=== PATIENT | male | born 1995 | race Caucasian/White ===

== ENCOUNTER 2017-12-08 19:14 | Emergency (ER) | payer SELFPAY ==
[~2017-12-08] VITALS: Ht 182.9 cm; Wt 55.7 kg
[2017-12-08 19:30] VITALS: BP 121/81; PULSE 104; RESP 18; TEMP 98.3; O2SAT 98
[2017-12-08] MEDS ORDERED: SODIUM CHLOR 0.9% 1000 ML INJ 1,000 ML IV SCH (19:56)
[2017-12-08] MEDS ORDERED: ONDANSETRON HCL 4 MG/2 ML VIAL IVP ONE (20:00)
[2017-12-08] MEDS ORDERED: SODIUM CHLORIDE 0.9% FLUSH 10 ML FLUSH IV FLUSH PRN (20:00)
[2017-12-08] MEDS ORDERED: SODIUM CHLOR 0.9% 1000 ML INJ 1,000 ML IV ONE ×3 (20:00→21:00)
[2017-12-08 20:12] VITALS: BP 120/79; PULSE 87; RESP 18; O2SAT 100
[2017-12-08 20:16] LABS: HEMOGLOBIN 17.5 GM/DL (13.0-17.0); MEAN CELL VOLUME 81.6 FL (80.0-100.0); MEAN CORPUSCULAR HEMOGLOBIN 26.9 PG (27.0-34.0); MEAN PLATELET VOLUME 8.5 FL (7.0-11.0); PLATELET COUNT 280 TH/MM3 (150-450); RED CELL DISTRIBUTION WIDTH 12.4 % (11.6-17.2); WHITE BLOOD COUNT 21.1 TH/MM3 (4.0-11.0)
[2017-12-08 20:28] LABS: CALCIUM 10.5 MG/DL (8.5-10.1)
[2017-12-08 20:29] LABS: BICARBONATE 23.6 MEQ/L (21.0-32.0)
[2017-12-08 20:32] LABS: CREATININE 1.7 MG/DL (0.60-1.30)
[2017-12-08 20:33] LABS: BANDS 30 % (0-6); LYMPHOCYTES 3 % (9-44); MONOCYTES 3 % (0-8); NEUTROPHIL # MANUAL DIFF 19.8 TH/MM3 (1.8-7.7); POLYS (SEG NEUTROPHILS) 64 % (16-70)
[2017-12-08 21:14] VITALS: BP 116/68; PULSE 84; RESP 18; O2SAT 100
--- NOTE | 2017-12-08 21:25 | PD ---
HPI Chief Complaint: GI Complaint Time Seen by Provider: 19:49 Travel History International Travel<30 days: No Contact w/Intl Traveler<30days: No Traveled to known affect area: No History of Present Illness HPI The patient is 22 years old. He reports nausea and vomiting and diarrhea throughout the course of the day. He woke up with diarrhea and vomiting started several hours later. He has had no fever. He denies blood in the stool or emesis. He denies abdominal pain. He reports vomiting at least once an hour. Any episode of vomiting is accompanied by diarrhea. There is no incontinence. The patient ate chicken yesterday was left over. He reports eating at a barbecue 2 days prior and multiple people have since developed GI illness. No similar prior events. Patient denies drugs and alcohol. PFSH Past Medical History Medical History: Denies Significant Hx Diminished Hearing: No Immunizations Current: Yes Influenza Vaccination: No ?: Not Past Surgical History Surgical History: No Previous Surgery Social History Alcohol Use: Yes (OCC) Tobacco Use: No (Vape) Substance Use: Yes (MARIJUANA) Allergies-Medications (Allergen,Severity, Reaction): Coded Allergies: No Known Allergies (Verified Adverse Reaction, Unknown, 12/08/17) Reported Meds & Prescriptions Reported Meds & Active Scripts Active No Active Prescriptions or Reported Medications Review of Systems Except as stated in HPI: all other systems reviewed are Neg General / Constitutional: No: Fever Physical Exam Narrative GENERAL: 22-year-old male well-nourished well-developed no acute distress Vital Signs Date Time Temp Pulse Resp B/P (MAP) Pulse Ox O2 Delivery O2 Flow Rate FiO2 12/08/17 21:14 84 18 116/68 (84) 100 Room Air 12/08/17 20:12 100 Room Air 12/08/17 20:12 87 18 120/79 (93) 100 Room Air 12/08/17 19:42 18 12/08/17 19:30 98.3 104 18 121/81 (94) 98 SKIN: Warm and dry. HEAD: Atraumatic. Normocephalic. EYES: Pupils equal and round. No scleral icterus. No injection or drainage. ENT: No nasal bleeding or discharge. Mucous membranes pink and moist. NECK: Trachea midline. No JVD. CARDIOVASCULAR: Regular rhythm. The heart rate about 100. RESPIRATORY: No accessory muscle use. Clear to auscultation. Breath sounds equal bilaterally. GASTROINTESTINAL: A abdomen is soft. There is no focus of tenderness. MUSCULOSKELETAL: Extremities without clubbing, cyanosis, or edema. No obvious deformities. NEUROLOGICAL: Awake and alert. No obvious cranial nerve deficits. Motor grossly within normal limits. Five out of 5 muscle strength in the arms and legs. Normal speech. PSYCHIATRIC: Appropriate mood and affect; insight and judgment normal. Data Data Last Documented VS Vital Signs Date Time Temp Pulse Resp B/P (MAP) Pulse Ox O2 Delivery O2 Flow Rate FiO2 12/08/17 23:13 88 18 126/70 (88) 99 Room Air 12/08/17 19:30 98.3 Orders Orders Basic Metabolic Panel (Bmp) (12/08/17 19:56) Complete Blood Count With Diff (12/08/17 19:56) Iv Access Insert/Monitor (12/08/17 19:56) Ecg Monitoring (12/08/17 19:56) Oximetry (12/08/17 19:56) Ondansetron Inj (Zofran Inj) (12/08/17 20:00) Sodium Chlor 0.9% 1000 Ml Inj (Ns 1000 M (12/08/17 19:56) Sodium Chloride 0.9% Flush (Ns Flush) (12/08/17 20:00) Sodium Chlor 0.9% 1000 Ml Inj (Ns 1000 M (12/08/17 20:00) Complete Blood Count With Diff (12/08/17 21:00) Comprehensive Metabolic Panel (12/08/17 21:00) Sodium Chlor 0.9% 1000 Ml Inj (Ns 1000 M (12/08/17 21:00) Sodium Chlor 0.9% 1000 Ml Inj (Ns 1000 M (12/08/17 21:00) Ed Discharge Order (12/08/17 23:37) Labs Laboratory Tests Test 12/08/17 19:52 12/08/17 22:21 12/08/17 22:43 White Blood Count 21.1 TH/MM3 14.1 TH/MM3 Red Blood Count 6.50 MIL/MM3 4.81 MIL/MM3 Hemoglobin 17.5 GM/DL 12.8 GM/DL Hematocrit 53.0 % 38.9 % Mean Corpuscular Volume 81.6 FL 80.9 FL Mean Corpuscular Hemoglobin 26.9 PG 26.6 PG Mean Corpuscular Hemoglobin Concent 33.0 % 32.9 % Red Cell Distribution Width 12.4 % 11.9 % Platelet Count 280 TH/MM3 198 TH/MM3 Mean Platelet Volume 8.5 FL 8.1 FL CBC Comment AUTO DIFF DIFF FINAL Differential Total Cells Counted 100 Neutrophils % (Manual) 64 % Band Neutrophils % 30 % Lymphocytes % 3 % Monocytes % 3 % Neutrophils # (Manual) 19.8 TH/MM3 Differential Comment FINAL DIFF MANUAL Platelet Estimate NORMAL Platelet Morphology Comment NORMAL Red Cell Morphology Comment NORMAL Blood Urea Nitrogen 21 MG/DL 18 MG/DL Creatinine 1.70 MG/DL 0.98 MG/DL Random Glucose 140 MG/DL 97 MG/DL Calcium Level 10.5 MG/DL 8.1 MG/DL Sodium Level 136 MEQ/L 143 MEQ/L Potassium Level 4.1 MEQ/L 4.5 MEQ/L Chloride Level 103 MEQ/L 117 MEQ/L Carbon Dioxide Level 23.6 MEQ/L 20.5 MEQ/L Anion Gap 9 MEQ/L 6 MEQ/L Estimat Glomerular Filtration Rate 50 ML/MIN 94 ML/MIN Neutrophils (%) (Auto) 89.3 % Lymphocytes (%) (Auto) 3.0 % Monocytes (%) (Auto) 2.8 % Eosinophils (%) (Auto) 0.0 % Basophils (%) (Auto) 4.9 % Neutrophils # (Auto) 12.6 TH/MM3 Lymphocytes # (Auto) 0.4 TH/MM3 Monocytes # (Auto) 0.4 TH/MM3 Eosinophils # (Auto) 0.0 TH/MM3 Basophils # (Auto) 0.7 TH/MM3 Total Protein 6.5 GM/DL Albumin 3.5 GM/DL Alkaline Phosphatase 48 U/L Aspartate Amino Transf (AST/SGOT) 14 U/L Alanine Aminotransferase (ALT/SGPT) 17 U/L Total Bilirubin 0.4 MG/DL [facility] Medical Decision Making Medical Screen Exam Complete: Yes Emergency Medical Condition: Yes Medical Record Reviewed: Yes Differential Diagnosis Constipation, Gastritis, Acute Cholecystitis, Biliary Colic, Pancreatitis, JONAS , Hepatitis, Bowel Obstruction, Cystitis, Mesenteric Ischemia, AAA, Appendicitis , Renal Stone/Hydronephrosis, GERD, perforated viscous Narrative Course CBC & BMP Diagram 12/08/17 19:52 Calcium Level 10.5 H 12/08/17 22:21 12/08/17 22:43 Calcium Level 8.1 #L, Total Protein 6.5, Albumin 3.5, Alkaline Phosphatase 48, Aspartate Amino Transf (AST/SGOT) 14 L, Alanine Aminotransferase (ALT/SGPT) 17, Total Bilirubin 0.4 Diagnosis Primary Impression: Nausea & vomiting Qualified Codes: R11.2 - Nausea with vomiting, unspecified Additional Impression: Diarrhea Qualified Codes: R19.7 - Diarrhea, unspecified Med/Other Pt SpecificInfo: Prescription(s) given Scripts Ondansetron Odt (Zofran Odt) 4 Mg Tab 4 MG SL Q8HR Y for Nausea/Vomiting, #10 TAB 0 Refills Prov: Joaquin Dooley MD 12/09/17 Disposition: 01 DISCHARGE HOME Condition: Stable Joaquin Dooley MD Dec 08, 2017 21:25
[2017-12-08 22:30] LABS: AUTOMATED NEUTROPHIL # 12.6 TH/MM3 (1.8-7.7); BASOPHIL # 0.7 TH/MM3 (0-0.2); BASOPHIL % 4.9 % (0.0-2.0); HEMATOCRIT 38.9 % (39.0-51.0); HEMOGLOBIN 12.8 GM/DL (13.0-17.0); LYMPHOCYTE # 0.4 TH/MM3 (1.0-4.8); MEAN CELL VOLUME 80.9 FL (80.0-100.0); MEAN CORPUSCULAR HEMOGLOBIN 26.6 PG (27.0-34.0); MEAN CORPUSCULAR HGB CONC 32.9 % (32.0-36.0); MEAN PLATELET VOLUME 8.1 FL (7.0-11.0); MONO % 2.8 % (0.0-8.0); MONOCYTE # 0.4 TH/MM3 (0-0.9); NEUT % 89.3 % (16.0-70.0); PLATELET COUNT 198 TH/MM3 (150-450); RED BLOOD COUNT 4.81 MIL/MM3 (4.50-5.90); RED CELL DISTRIBUTION WIDTH 11.9 % (11.6-17.2); WHITE BLOOD COUNT 14.1 TH/MM3 (4.0-11.0)
[2017-12-08 23:13] VITALS: BP 126/70; PULSE 88; RESP 18; O2SAT 99
[2017-12-08 23:15] LABS: ALBUMIN 3.5 GM/DL (3.4-5.0); ALKALINE PHOSPHATASE 48 U/L (45-117); ALT (GPT) 17 U/L (12-78); AST (GOT) 14 U/L (15-37); BICARBONATE 20.5 MEQ/L (21.0-32.0); BLOOD UREA NITROGEN 18 MG/DL (7-18); CALCIUM 8.1 MG/DL (8.5-10.1); CHLORIDE 117 MEQ/L (98-107); CREATININE 0.98 MG/DL (0.60-1.30); GLOMERULAR FILTRATION RATE 94 ML/MIN (>89); GLUCOSE,RANDOM 97 MG/DL (74-106); SODIUM (NA) 143 MEQ/L (136-145); TOTAL BILIRUBIN ADULT 0.4 MG/DL (0.2-1.0); TOTAL PROTEIN 6.5 GM/DL (6.4-8.2)
[2017-12-09] MEDS ORDERED: ZOFR4TAB3 SL (00:03)
[2017-12-09 00:14] VITALS: BP 131/61; TEMP 98.8
== END 2017-12-09 00:16 | disposition home or self-care (01) ==
LOC: PHED 19:14
DX: R11.2 Nausea with vomiting, unspecified (principal); R19.7 Diarrhea, unspecified; F12.90 Cannabis use, unspecified, uncomplicated
CPT/HCPCS: 80053; 85025; 85027; 96361; 96374; 99284; J2405; J7030; 80048; 85007